=== PATIENT | male | born 1965 | race Caucasian/White ===

== ENCOUNTER 2016-10-25 12:04 | Emergency (ER) | payer OTHER ==
[~2016-10-25] VITALS: Ht 175.3 cm; Wt 64.4 kg
[~2016-10-25 12:04] MED LIST: AFRIN,GENASAL D15 ML BOTH NARES; AMLODIPINE BES2.5 MG PO; CENTRUM CARDIO PO; CENTRUM MEN'S1 EACH PO; CLARITIN,ALAVAR10 MG PO; CLARITIN10 M3 PO; IBUPROFEN600 MG PO; NAPROSYN500 MG PO; TYLENOL WITH C1 EACH PO
[2016-10-25] MEDS ORDERED: ZOFRAN ODT4 MG PO (14:05)
[2016-10-25] MEDS ORDERED: MOTRIN600 MG PO (14:05)
[2016-10-25 14:27] VITALS: BP 118/81
== END 2016-10-25 14:29 | disposition home or self-care (01) ==
LOC: EME → EDBD 12:04 → EME 12:04
DX: S09.90XA Unspecified injury of head, initial encounter (principal); S00.81XA Abrasion of other part of head, initial encounter; W22.09XA Striking against other stationary object, initial encounter; Y93.89 Activity, other specified; Y92.811 Bus as the place of occurrence of the external cause; I10 Essential (primary) hypertension
CPT/HCPCS: 70450; 99281; 99284